=== PATIENT | female | born 1940 | race American Indian/Alaskan Native ===

== ENCOUNTER 2018-01-25 11:09 | Observation (INO) | payer MEDICARE, OTHER ==
[2018-01-25 11:47] LABS: VENOUS BLOOD GAS BASE EXCESS 1.5 mmol/L (0.0-2.0); VENOUS BLOOD GAS PCO2 39 mmHg (40-60); VENOUS BLOOD GAS PO2 20 mm/Hg (30-55); VENOUS BLOOD PH 7.43 (7.32-7.43)
[2018-01-25 11:50] LABS: BASO # 0.1 K/uL (0.0-0.2); EOS % 0.1 % (0.0-4.0); HEMOGLOBIN 11.2 g/dL (11.0-16.0); LYMPH # 0.8 K/uL (1.0-4.3); LYMPH % 12.6 % (20.0-40.0); MEAN CORPUSCULAR HEMOGLOBIN 26.5 pg (27.0-31.0); MEAN CORPUSCULAR HGB CONC 33.5 g/dL (33.0-37.0); MEAN PLATELET VOLUME 10.4 fL (7.2-11.7); MONO # 0.8 K/uL (0.0-0.8); MONO % 12.6 % (0.0-10.0); NEUT # 4.7 K/uL (1.8-7.0); NEUT % 73.7 % (50.0-75.0); NRBC % 0.1 % (0.0-2.0); RBC 4.24 Mil/uL (3.80-5.20); RED CELL DISTRIBUTION WIDTH 14.4 % (11.5-14.5); WHITE BLOOD COUNT 6.3 K/uL (4.8-10.8)
--- NOTE | 2018-01-25 11:58 | C.PDOC ---
History Of Present Illness 77 y/o female, with PMHx of HTN, and diabetes, presents to ED c/o dizziness associated with chills, and generalized weakness for the last 2 days. Notes dizziness is worse when standing up. Pt also complains of lesions to her arm that she noticed 4 days ago. She admits to shortness of breath occasionally. Otherwise, denies headache, chest pain, palpitation, cough, or any other associated symptoms at this time. Time Seen by Provider: 01/25/18 11:34 Chief Complaint (Nursing): Dizziness/Lightheaded History Per: Patient History/Exam Limitations: no limitations Onset/Duration Of Symptoms: Days Current Symptoms Are (Timing): Still Present Activity At Onset Of Symptoms: Standing Recent travel outside of the [place]: No Additional History Per: Patient Past Medical History Reviewed: Historical Data, Nursing Documentation, Vital Signs Vital Signs: Last Vital Signs Temp 100.3 F H 01/25/18 11:18 Pulse 70 01/25/18 11:18 Resp 19 01/25/18 11:18 BP 147/70 01/25/18 11:18 Pulse Ox 98 01/25/18 11:18 - Medical History PMH: HTN Family History: States: Unknown Family Hx - Social History Hx Alcohol Use: No Hx Substance Use: No - Immunization History Hx Tetanus Toxoid Vaccination: No Hx Influenza Vaccination: No Hx Pneumococcal Vaccination: Yes Review Of Systems Except As Marked, All Systems Reviewed And Found Negative. Constitutional: Positive for: Chills, Weakness Cardiovascular: Negative for: Chest Pain Respiratory: Positive for: Shortness of Breath Musculoskeletal: Negative for: Neck Pain Skin: Positive for: Lesions Neurological: Positive for: Dizziness. Negative for: Weakness, Numbness, Headache Physical Exam - Physical Exam Appears: Non-toxic, No Acute Distress Skin: Warm, Dry, Other (small, tender, purulent, and erythematous lesion to right cubital fossa; another small and tender lesion to left forearm) Head: Atraumatic, Normacephalic Eye(s): bilateral: Normal Inspection Oral Mucosa: Moist Neck: Normal ROM, Supple Cardiovascular: Rhythm Regular, No Murmur Respiratory: Normal Breath Sounds, No Rales, No Rhonchi, No Wheezing Gastrointestinal/Abdominal: Soft, No Tenderness Extremity: Normal ROM Neurological/Psych: Oriented x3, Normal Speech, No Other (no focal deficits) ED Course And Treatment - Laboratory Results Result Diagrams: 10/04/18 11:44 01/25/18 11:44 ECG: Interpreted By Me, Viewed By Me ECG Rhythm: Sinus Rhythm ECG Interpretation: No Acute Changes Interpretation Of ECG: Q wave in inferior leads. No acute ST/T wave changes. Rate From EC (bpm) O2 Sat by Pulse Oximetry: 98 (RA) Pulse Ox Interpretation: Normal Medical Decision Making Medical Decision Making: Plan: Blood work Urinalysis EKG CXR Patient initially with low grade temp in the ED 100.3, no elevated white count, no UTI, no pneumonia, lactate mildly elevated. patient developed fever in the ED, plan to hospitalize. spoke with surveillance monitor physician , Dr. Thorpe for patients PMD's office. Recommended using surveillance monitor medicine. Discussed with Dr. Coppola and medical director/head team physician. Disposition Discussed With Dr.: Herrera Coppola Jr. Counseled Patient/Family Regarding: Studies Performed, Diagnosis, Need For Followup - Disposition Disposition: HOSPITALIZED Disposition Time: 14:37 Condition: GUARDED Forms: [facility] (Moroccan) - POA Present On Arrival: None - Clinical Impression Clinical Impression: Fever, Dizziness - Scribe Statement The provider has reviewed the documentation as recorded by the Scribe KP All medical record entries made by the Scribe were at my direction and personally dictated by me. I have reviewed the chart and agree that the record accurately reflects my personal performance of the history, physical exam, medical decision making, and the department course for this patient. I have also personally directed, reviewed, and agree with the discharge instructions and disposition. Decision To Admit - Pt Status Changed To: Hospital Disposition Of: Observation - . Bed Request Type: Regular Admitting Physician: Hererra Coppola Jr. Patient Diagnosis: Fever, Dizziness
[2018-01-25 12:01] LABS: ALB/GLOB RATIO 1.3 (1.0-2.1); ALBUMIN 4.2 g/dL (3.5-5.0); CALCIUM 9.2 mg/dl (8.6-10.4)
--- NOTE | 2018-01-25 12:41 | RAD ---
Date of service: 01/25/2018 HISTORY: Sepsis Patient COMPARISON: No prior. FINDINGS: LUNGS: No active pulmonary disease. PLEURA: No significant pleural effusion identified, no pneumothorax apparent. CARDIOVASCULAR: No radiographic findings to suggest acute or significant cardiovascular disease. OSSEOUS STRUCTURES: No significant abnormalities. VISUALIZED UPPER ABDOMEN: Normal. OTHER FINDINGS: None. IMPRESSION: No active disease.
[2018-01-25 13:21] LABS: SQUAMOUS EPITHIAL 6 /hpf (0-5); URINE BACTERIA RARE (<OCC); URINE BILIRUBIN NEGATIVE (NEGATIVE); URINE BLOOD 1+ (NEGATIVE); URINE CLARITY Hazy (Clear); URINE COLOR Amber (YELLOW); URINE GLUCOSE (UA) NORMAL (Normal); URINE LEUKOCYTE ESTERASE 3+ Leu/uL (Negative); URINE PROTEIN 2+ mg/dL (NEGATIVE); URINE UROBILINOGEN NORMAL mg/dL (0.2-1.0)
[2018-01-25] MEDS ORDERED: Sodium Chloride 0.9% 1,000 ML IV ONE (13:23)
[2018-01-25] MEDS ORDERED: Sodium Chloride 0.9% 1,000 ML ONE (13:55)
--- NOTE | 2018-01-25 14:41 | CP.PCM.HP ---
History of Present Illness - History of Present Illness History of Present Illness: POA: : Hunter Smith #[phone] HPI: 77 year old female with past medical history of HTN and diabetes type II presents to the ER for shortness of breath and lightheadedness for the past 3 days. Patient states both symptoms started randomly. She normally can walk on her own without any assisted devices. Lately she feels like she has to hold on to things to keep her balance so she does not fall. She states she can usually walk 2-3 blocks without any difficulty breathing, however lately she is having shortness of breath walking from her bed to the bathroom. She states she sleeps with one pillow. She also reports drinking a lot of tomato juice for the past 2 weeks even though she is allergic. When prompted why she stated, "I wanted a cold drink." She has also been around a cat last week while she was doing her hair and she is normally also allergic with rashes when exposed to cats. Overnight she states she felt feverish with chills. Patient also recently traveled to [place] by car and returned 12/29/17. She denies chest pain, palpitations, cat bite or scratch, dysuria, hematuria, diarrhea, constipation, nausea, vomiting or sick contacts. PMD: Dr. Lozada Past Medical History: Diabetes Type II; HTN Past Surgical History: denies Medications: Losartan/HCTZ 100/25mg dialy; Glipizide ER 5mg before breakfast; Glipizide ER 10mg before lunch and dinner; Amlodipine 10mg daily; Metoprolol tartrate 100mg bid; Repaglinidine 2mg 2 tablets before breakfast; Metformin 1000mg bid; Clonidine 0.2mg HS; Pioglitazone 15mg daily; Aspirin 81mg daily; Multivitamin daily Allergies: Tomato- rash; Cats - rash Social History: denies alcohol, smoking or illicit drug use. Lives with . Present on Admission - Present on Admission Any Indicators Present on Admission: No Review of Systems - Constitutional Constitutional: Chills, Fever. absent: Headache - EENT Eyes: absent: Blurred Vision - Cardiovascular Cardiovascular: Dyspnea, Dyspnea on Exertion, Lightheadedness. absent: Chest Pain, Chest Pain at Rest, Chest Pain with Activity, Edema, Palpitations - Respiratory Respiratory: Dyspnea on Exertion. absent: Cough, Wheezing - Gastrointestinal Gastrointestinal: absent: Constipation, Diarrhea, Nausea, Vomiting - Genitourinary Genitourinary: absent: Dysuria, Hematuria - Musculoskeletal Musculoskeletal: absent: Numbness, Tingling - Endocrine Endocrine: absent: Fatigue, Palpitations Past Patient History - Past Social History Smoking Status: Never Smoked - CARDIAC Hx Hypertension: Yes - ENDOCRINE/METABOLIC Hx Diabetes Mellitus Type 2: Yes - PSYCHIATRIC Hx Substance Use: No - SURGICAL HISTORY Hx Surgeries: No - ANESTHESIA Hx Anesthesia: No Meds Allergies/Adverse Reactions: Allergies Allergy/AdvReac Type Severity Reaction Status Date / Time clindamycin Allergy ITCHING Verified 01/25/18 16:17 tomato Allergy RASH Verified 01/25/18 16:04 Physical Exam - Constitutional Appears: Well, Non-toxic, No Acute Distress - Head Exam Head Exam: ATRAUMATIC, NORMAL INSPECTION - Eye Exam Eye Exam: EOMI, Normal appearance, PERRL Pupil Exam: NORMAL ACCOMODATION - ENT Exam ENT Exam: Mucous Membranes Moist - Neck Exam Neck exam: Negative for: Lymphadenopathy - Respiratory Exam Respiratory Exam: Clear to Auscultation Bilateral, NORMAL BREATHING PATTERN. absent: Rales, Rhonchi, Wheezes, Stridor - Cardiovascular Exam Cardiovascular Exam: REGULAR RHYTHM, RRR, +S1, +S2. absent: JVD - GI/Abdominal Exam GI & Abdominal Exam: Normal Bowel Sounds, Soft. absent: Distended, Firm, Tenderness - Extremities Exam Extremities exam: Positive for: normal capillary refill, normal inspection, pedal pulses present. Negative for: joint swelling, pedal edema, tenderness - Neurological Exam Neurological exam: Alert, CN II-XII Intact, Oriented x3 - Expanded Neurological Exam Expanded Patient oriented to: person, place, time Cranial nerves: EOM's Intact: Normal Sensory exam: Lower Extremity Light Touch: Normal, Upper Extremity Light Touch: Normal Neuro motor strength exam: Left Upper Extremity: 5, Right Upper Extremity: 5, L eft Lower Extremity: 5, Right Lower Extremity: 5 Coma Scale Eye Opening: SPONTANEOUS Coma Scale Motor Response: OBEYS COMMANDS - Psychiatric Exam Psychiatric exam: Normal Affect, Normal Mood - Skin Skin Exam: Rash (small, pruritic and erythematous lesion to right cubital fossa; small and pruritic lesion to left forearm), Urticaria (right forearm; posterior trunk) Results - Vital Signs Recent Vital Signs: Last Vital Signs Temp 101.4 F H 01/25/18 13:36 Pulse 66 01/25/18 13:36 Resp 20 01/25/18 13:36 BP 125/63 01/25/18 13:36 Pulse Ox 98 01/25/18 14:40 - Labs Result Diagrams: 01/25/18 11:44 01/25/18 11:44 Labs: Laboratory Results - last 24 hr 01/25/18 01/25/18 01/25/18 11:41 11:44 11:44 WBC 6.3 RBC 4.24 Hgb 11.2 Hct 33.5 L MCV 79.0 L MCH 26.5 L MCHC 33.5 RDW 14.4 Plt Count 213 MPV 10.4 Neut % (Auto) 73.7 Lymph % (Auto) 12.6 L [place] % (Auto) 12.6 H Eos % (Auto) 0.1 Baso % (Auto) 1.0 Neut # (Auto) 4.7 Lymph # (Auto) 0.8 L [place] # (Auto) 0.8 Eos # (Auto) 0.0 Baso # (Auto) 0.1 pO2 20 L VBG pH 7.43 VBG pCO2 39 L VBG HCO3 24.4 VBG Total CO2 27.1 VBG O2 Sat (Calc) 35.5 L VBG Base Excess 1.5 VBG Potassium 3.9 Sodium 136.0 136 Chloride 104.0 101 Glucose 138 H Lactate 2.0 Potassium 4.1 Carbon Dioxide 23 Anion Gap 16 BUN 21 H Creatinine 1.2 Est GFR ( Amer) 53 Est GFR (Non-Af Amer) 44 Random Glucose 134 H Calcium 9.2 Total Bilirubin 0.5 AST 57 H ALT 57 H Alkaline Phosphatase 87 Total Protein 7.3 Albumin 4.2 Globulin 3.1 Albumin/Globulin Ratio 1.3 Venous Blood Potassium 3.9 Urine Color Urine Clarity Urine pH Ur Specific [place] Urine Protein Urine Glucose (UA) Urine Ketones Urine Blood Urine Nitrate Urine Bilirubin Urine Urobilinogen Ur Leukocyte Esterase Urine WBC (Auto) Urine RBC (Auto) Ur Squamous Epith Cells Urine Bacteria Hyaline Casts 01/25/18 13:12 WBC RBC Hgb Hct MCV MCH MCHC RDW Plt Count MPV Neut % (Auto) Lymph % (Auto) [place] % (Auto) Eos % (Auto) Baso % (Auto) Neut # (Auto) Lymph # (Auto) [place] # (Auto) Eos # (Auto) Baso # (Auto) pO2 VBG pH VBG pCO2 VBG HCO3 VBG Total CO2 VBG O2 Sat (Calc) VBG Base Excess VBG Potassium Sodium Chloride Glucose Lactate Potassium Carbon Dioxide Anion Gap BUN Creatinine Est GFR ( Amer) Est GFR (Non-Af Amer) Random Glucose Calcium Total Bilirubin AST ALT Alkaline Phosphatase Total Protein Albumin Globulin Albumin/Globulin Ratio Venous Blood Potassium Urine Color Tammy Urine Clarity Hazy Urine pH 5.0 Ur Specific [place] 1.020 Urine Protein 2+ H Urine Glucose (UA) Normal Urine Ketones Negative Urine Blood 1+ H Urine Nitrate Negative Urine Bilirubin Negative Urine Urobilinogen Normal Ur Leukocyte Esterase 3+ H Urine WBC (Auto) 26 H Urine RBC (Auto) 6 H Ur Squamous Epith Cells 6 H Urine Bacteria Rare Hyaline Casts 11-20 H Assessment & Plan - Assessment and Plan (Free Text) Assessment: Shortness of Breath - secondary to allergic reaction vs. infection - Patient states she has been drinking tomato juice daily for the past 2 we eks - Febrile; WBS- WNL - UA: contaminated; f/u repeat UA - f/u blood culture and urine culture - VBG: pH 7.42; CO2 36; HCO3 23.5 - Chest Xray: No active disease - EKG: NSR - Medications * Patient was given a one dose of Clindamycin in the ER - patient later developed a further rash on her left arm * Tylenol prn for fever * Solumedrol 125mg one dose * Pepcid 20mg bid * Benadryl 25mg daily Fever - possibly secondary to Erythematous lesion right cubital fossa - UA: contaminated; f/u repeat UA - f/u blood culture and urine culture - Medications * Patient was given a one dose of Clindamycin in the ER - patient later developed a further rash on her left arm * Tylenol prn for fever * Keflex 500mg q6h History of HTN - Restart Home medications: * Amlodipine 10mg po daily * Clonidine 0.2mg po HS * Metoprolol Tartrate 100mg po bid * Losartan 100mg po daily - ECHO (09/27/17): borderline concentric left ventricular hypertrophy; left ventricle systolic function is normal; EF 65-70% - Myocardial Perfusion Study (09/27/17): Left ventricle systolic function is normal; EF 66-67% at rest; no regional wall motion abnormalities noted; no ischemia History of Diabetes - Restart home medications: * Glipizide SR 5mg po before breakfast * Glipizide SR 10mg po before lunch and dinner * Metformin 1000mg po bid * Pioglitazone 15mg po daily * Prandin 2mg two tablets before breakfast * Aspirin 81mg dialy Prophylaxis - DVT risk 2: - Heparin SC q8h - SCDs - Physical Therapy eval and treat Case discussed with Dr. Anat Oropeza PGY-2
[2018-01-25 14:48] LABS: VENOUS BLOOD GAS BASE EXCESS -0.7 mmol/L (0.0-2.0); VENOUS BLOOD GAS PCO2 36 mmHg (40-60); VENOUS BLOOD GAS PO2 32 mm/Hg (30-55); VENOUS BLOOD PH 7.42 (7.32-7.43)
[2018-01-25] MEDS ORDERED: Dextrose 50% SYRINGE Inj (50 ml) IV PRN (16:07)
[2018-01-25] MEDS ORDERED: Glucagon Recombinant 1 mg Inj IM PRN (16:07)
[2018-01-25] MEDS: GlipiZIDE 10 mg SR Tab PO SCH (17:17)
[2018-01-25] MEDS: Saccharomyces Boulardi 250 mg Cap PO SCH (22:03)
[2018-01-25 22:27] VITALS: RESP 20
[2018-01-25 23:52] VITALS: O2SAT 96
[2018-01-26] MEDS ORDERED: GlipiZIDE 5 mg SR Tab PO SCH (07:30)
[2018-01-26] MEDS: GlipiZIDE 10 mg SR Tab PO SCH ×2 (08:00→16:30)
[2018-01-26] MEDS: (Novolin R) Insulin Human Regular 100 units/ml vial SC SCH ×3 (08:00→16:30)
[2018-01-26 08:15] LABS: BASO % 0.3 % (0.0-2.0); HEMOGLOBIN 10.9 g/dL (11.0-16.0); LYMPH # 0.9 K/uL (1.0-4.3); LYMPH % 15.2 % (20.0-40.0); MEAN CELL VOLUME 78.8 fL (81.0-99.0); MEAN CORPUSCULAR HEMOGLOBIN 27.1 pg (27.0-31.0); MEAN CORPUSCULAR HGB CONC 34.4 g/dL (33.0-37.0); MEAN PLATELET VOLUME 10.7 fL (7.2-11.7); MONO # 0.5 K/uL (0.0-0.8); MONO % 8.9 % (0.0-10.0); NEUT # 4.5 K/uL (1.8-7.0); NEUT % 75.6 % (50.0-75.0); RBC 4.02 Mil/uL (3.80-5.20)
[2018-01-26 08:31] LABS: ALB/GLOB RATIO 1.3 (1.0-2.1); ALBUMIN 3.7 g/dL (3.5-5.0); CALCIUM 8.8 mg/dl (8.6-10.4)
[2018-01-26] MEDS: Saccharomyces Boulardi 250 mg Cap PO SCH ×2 (09:16→18:03)
[2018-01-26] MEDS ORDERED: Multiple Vitamins Tab PO SCH (10:00)
[2018-01-26] MEDS ORDERED: Magnesium Sulfate 1 gm in D5W 1 GM/100 ML BAG IVPB ONE (10:48)
[2018-01-26] MEDS ORDERED: Magnesium Oxide 400 mg Tab UD PO ONE ×2 (10:51→18:00)
--- NOTE | 2018-01-26 14:33 | CP.PCM.PN ---
Objective - Vital Signs/Intake and Output Vital Signs (last 24 hours): Temp Pulse Resp BP Pulse Ox 97.7 F 69 20 169/89 H 96 01/26/18 07:40 01/26/18 07:40 01/26/18 07:40 01/26/18 07:40 01/26/18 12:24 Intake and Output: 01/26/18 01/26/18 06:59 18:59 Intake Total 200 Balance 200 - Medications Medications: Current Medications Acetaminophen (Tylenol 325mg Tab) 650 mg PO Q6 PRN PRN Reason: Fever >100.4 F Amlodipine Besylate (Norvasc) 10 mg PO DAILY [facility] Last Admin: 01/26/18 09:16 Dose: 10 mg Aspirin (Ecotrin) 81 mg PO DAILY [facility] Last Admin: 01/26/18 09:16 Dose: 81 mg Cephalexin Monohydrate (Keflex) 500 mg PO Q6H [facility]; Protocol Last Admin: 01/26/18 14:06 Dose: 500 mg Clonidine HCl (Catapres) 0.2 mg PO HS [facility] Last Admin: 01/25/18 22:03 Dose: 0.2 mg Dextrose (Dextrose 50% Inj) 0 ml IV STAT PRN; Protocol PRN Reason: Hypoglycemia Protocol Dextrose (Glutose 15) 0 gm PO ONCE PRN; Protocol PRN Reason: Hypoglycemia Protocol Diphenhydramine HCl (Benadryl) 25 mg PO DAILY [facility] Last Admin: 01/26/18 09:20 Dose: Not Given Famotidine (Pepcid) 20 mg PO BID [facility] Last Admin: 01/26/18 09:16 Dose: 20 mg Glipizide (Glucotrol Xl) 5 mg PO ACB [facility] Last Admin: 01/26/18 08:00 Dose: 5 mg Glipizide (Glucotrol Xl) 10 mg PO BIDAC [facility] Last Admin: 01/26/18 08:00 Dose: 10 mg Glucagon (Glucagen Diagnostic Kit) 0 mg IM STAT PRN; Protocol PRN Reason: Hypoglycemia Protocol Heparin Sodium (Porcine) (Heparin) 5,000 units SC Q8 [facility] Last Admin: 01/26/18 14:06 Dose: 5,000 units Dextrose (Dextrose 5% In Water 1000 Ml) 1,000 mls @ 0 mls/hr IV .Q0M PRN; Protocol PRN Reason: Hypoglycemia Protocol Influenza Virus Vaccine (Fluzone Quad [id number]) 60 mcg IM .ONCE ONE Stop: 01/27/18 10:01 Insulin Human Regular (Novolin R) 0 unit SC [facility]; Protocol Last Admin: 01/26/18 12:30 Dose: 5 unit Losartan Potassium (Cozaar) 100 mg PO DAILY [facility] Last Admin: 01/26/18 09:16 Dose: 100 mg Magnesium Oxide (Mag-Ox) 400 mg PO ONCE ONE Stop: 01/26/18 18:01 Metformin HCl (Glucophage) 1,000 mg PO BID [facility] Last Admin: 01/26/18 09:16 Dose: 1,000 mg Metoprolol Tartrate (Lopressor) 100 mg PO BID [facility] Last Admin: 01/26/18 09:16 Dose: 100 mg Multivitamins (Hexavitamin) 1 tab PO DAILY [facility] Last Admin: 01/26/18 09:16 Dose: 1 tab Pioglitazone HCl (Actos) 15 mg PO DAILY [facility] Last Admin: 01/26/18 09:17 Dose: 15 mg Repaglinide (Prandin) 2 mg PO ACB [facility] Last Admin: 01/26/18 08:00 Dose: 2 mg Saccharomyces Boulardii (Florastor) 250 mg PO BID [facility] Last Admin: 01/26/18 09:16 Dose: 250 mg - Labs Labs: 01/26/18 07:40 01/26/18 07:40
[2018-01-26 18:07] VITALS: BP 161/71; PULSE 73; TEMP 98.5
--- NOTE | 2018-01-26 18:12 | CP.PCM.DIS ---
Provider - Provider Date of Admission: 01/25/18 14:38 Attending physician: Herrera Coppola Jr, MD Time Spent in preparation of Discharge (in minutes): 35 Diagnosis - Discharge Diagnosis (1) Insect bite Status: Acute (2) Diabetes Status: Chronic (3) Dizziness Status: Resolved (4) Fever Status: Resolved (5) Allergic reaction caused by a drug Status: Resolved Hospital Course - Lab Results Lab Results: Micro Results 01/25/18 12:07 Blood Blood Culture - Preliminary NO GROWTH AFTER 24 HOURS 01/25/18 12:03 Blood Blood Culture - Preliminary NO GROWTH AFTER 24 HOURS Most Recent Lab Values WBC 6.0 K/uL (4.8-10.8) 01/26/18 07:40 RBC 4.02 Mil/uL (3.80-5.20) 01/26/18 07:40 Hgb 10.9 g/dL (11.0-16.0) L 01/26/18 07:40 Hct 31.7 % (34.0-47.0) L 01/26/18 07:40 MCV 78.8 fL (81.0-99.0) L 01/26/18 07:40 MCH 27.1 pg (27.0-31.0) 01/26/18 07:40 MCHC 34.4 g/dL (33.0-37.0) 01/26/18 07:40 RDW 14.0 % (11.5-14.5) 01/26/18 07:40 Plt Count 228 K/uL (130-400) 01/26/18 07:40 MPV 10.7 fL (7.2-11.7) 01/26/18 07:40 Neut % (Auto) 75.6 % (50.0-75.0) H 01/26/18 07:40 Lymph % (Auto) 15.2 % (20.0-40.0) L 01/26/18 07:40 [place] % (Auto) 8.9 % (0.0-10.0) 01/26/18 07:40 Eos % (Auto) 0.0 % (0.0-4.0) 01/26/18 07:40 Baso % (Auto) 0.3 % (0.0-2.0) 01/26/18 07:40 Neut # (Auto) 4.5 K/uL (1.8-7.0) 01/26/18 07:40 Lymph # (Auto) 0.9 K/uL (1.0-4.3) L 01/26/18 07:40 [place] # (Auto) 0.5 K/uL (0.0-0.8) 01/26/18 07:40 Eos # (Auto) 0.0 K/uL (0.0-0.7) 01/26/18 07:40 Baso # (Auto) 0.0 K/uL (0.0-0.2) 01/26/18 07:40 pO2 32 mm/Hg (30-55) 01/25/18 14:44 VBG pH 7.42 (7.32-7.43) 01/25/18 14:44 VBG pCO2 36 mmHg (40-60) L 01/25/18 14:44 VBG HCO3 23.5 mmol/L 01/25/18 14:44 VBG Total CO2 24.5 mmol/L (22-28) 01/25/18 14:44 VBG O2 Sat (Calc) 66.9 % (40-65) H 01/25/18 14:44 VBG Base Excess -0.7 mmol/L (0.0-2.0) L 01/25/18 14:44 VBG Potassium 3.7 mmol/L (3.6-5.2) 01/25/18 14:44 Sodium 137.0 mmol/l (132-148) 01/25/18 14:44 Chloride 107.0 mmol/L (98-107) 01/25/18 14:44 Glucose 130 mg/dl (65-105) H 01/25/18 14:44 Lactate 1.1 mmol/L (0.7-2.1) 01/25/18 14:44 Sodium 137 mmol/L (132-148) 01/26/18 07:40 Potassium 4.3 mmol/L (3.6-5.2) 01/26/18 07:40 Chloride 101 mmol/L (98-107) 01/26/18 07:40 Carbon Dioxide 21 mmol/L (22-30) L 01/26/18 07:40 Anion Gap 19 (10-20) 01/26/18 07:40 BUN 27 mg/dL (7-17) H 01/26/18 07:40 Creatinine 1.1 mg/dL (0.7-1.2) 01/26/18 07:40 Est GFR ( Amer) 58 01/26/18 07:40 Est GFR (Non-Af Amer) 48 01/26/18 07:40 POC Glucose (mg/dL) 239 mg/dL (65-110) H 01/26/18 16:25 Random Glucose 371 mg/dL (65-105) H 01/26/18 07:40 Calcium 8.8 mg/dl (8.6-10.4) 01/26/18 07:40 Phosphorus 3.8 mg/dL (2.5-4.5) 01/26/18 07:40 Magnesium 1.5 mg/dL (1.6-2.3) L 01/26/18 07:40 Total Bilirubin 0.5 mg/dL (0.2-1.3) 01/26/18 07:40 AST 36 U/L (14-36) D 01/26/18 07:40 ALT 45 U/L (9-52) 01/26/18 07:40 Alkaline Phosphatase 84 U/L (38-126) 01/26/18 07:40 Total Protein 6.6 g/dL (6.3-8.3) 01/26/18 07:40 Albumin 3.7 g/dL (3.5-5.0) 01/26/18 07:40 Globulin 2.9 gm/dL (2.2-3.9) 01/26/18 07:40 Albumin/Globulin Ratio 1.3 (1.0-2.1) 01/26/18 07:40 Venous Blood Potassium 3.7 mmol/L (3.6-5.2) 01/25/18 14:44 Urine Color Tammy (YELLOW) 01/25/18 13:12 Urine Clarity Hazy (Clear) 01/25/18 13:12 Urine pH 5.0 (5.0-8.0) 01/25/18 13:12 Ur Specific [place] 1.020 (1.003-1.030) 01/25/18 13:12 Urine Protein 2+ mg/dL (NEGATIVE) H 01/25/18 13:12 Urine Glucose (UA) Normal mg/dL (Normal) 01/25/18 13:12 Urine Ketones Negative mg/dL (NEGATIVE) 01/25/18 13:12 Urine Blood 1+ (NEGATIVE) H 01/25/18 13:12 Urine Nitrate Negative (NEGATIVE) 01/25/18 13:12 Urine Bilirubin Negative (NEGATIVE) 01/25/18 13:12 Urine Urobilinogen Normal mg/dL (0.2-1.0) 01/25/18 13:12 Ur Leukocyte Esterase 3+ Geo/uL (Negative) H 01/25/18 13:12 Urine WBC (Auto) 26 /hpf (0-5) H 01/25/18 13:12 Urine RBC (Auto) 6 /hpf (0-3) H 01/25/18 13:12 Ur Squamous Epith Cells 6 /hpf (0-5) H 01/25/18 13:12 Urine Bacteria Rare (<OCC) 01/25/18 13:12 Hyaline Casts 11-20 /lpf (0-2) H 01/25/18 13:12 - Hospital Course Hospital Course: On admission: HPI: 77 year old female with past medical history of HTN and diabetes type II presents to the ER for shortness of breath and lightheadedness for the past 3 days. Patient states both symptoms started randomly. She normally can walk on her own without any assisted devices. Lately she feels like she has to hold on to things to keep her balance so she does not fall. She states she can usually walk 2-3 blocks without any difficulty breathing, however lately she is having shortness of breath walking from her bed to the bathroom. She states she sleeps with one pillow. She also reports drinking a lot of tomato juice for the past 2 weeks even though she is allergic. When prompted why she stated, "I wanted a cold drink." She has also been around a cat last week while she was doing her hair and she is normally also allergic with rashes when exposed to cats. Overnight she states she felt feverish with chills. Patient also recently t raveled to [place] by car and returned 12/29/17. She denies chest pain, palpitations, cat bite or scratch, dysuria, hematuria, diarrhea, constipation, nausea, vomiting or sick contacts. Hospital course: Fever (tmax 101.4) managed with Tylenol PRN. CXR shows no active disease. EKG showed NSR. Blood culture urine culture sent. UA, contaminated, not started on abx for UTI. Pt was given one dose of Clindamycin in the ER, but developed rash on left forearm. Clindamycin stopped, pt given solumedrol 125 mg IVP, pepcid, benadryl. Started on Keflex 500 mg PO q6h for skin findings. 01/26, pt has not had leukocytosis, and fever has resolved. Blood culture x2 prelim shows no growth for 24 hours. Urine culture shows multiple species, in light of contaminated urine sample, and no urinary symptoms likely not cause of fever and not UTI. Will be discharged home on oral doxycycline for MRSA coverage, and mupiricin cream. Hx of HTN: Home meds were continued during hospital stay. History of Diabetes: Home meds were continued during hospital stay. This is a summary of the hospital course, please see chart for full details Discharge Exam - Head Exam Head Exam: ATRAUMATIC, NORMAL INSPECTION - Eye Exam Eye Exam: EOMI, Normal appearance - ENT Exam ENT Exam: Mucous Membranes Moist - Neck Exam Neck exam: Normal Inspection - Respiratory Exam Respiratory Exam: Clear to PA & Lateral, NORMAL BREATHING PATTERN. absent: Rales, Rhonchi, Wheezes, Respiratory Distress - Cardiovascular Exam Cardiovascular Exam: REGULAR RHYTHM, +S1, +S2 - GI/Abdominal Exam GI & Abdominal Exam: Normal Bowel Sounds. absent: Firm, Guarding, Rebound, Rigid, Soft, Tenderness (no suprapubic tenderness) - Extremities Exam Extremities exam: normal inspection (no edema, no calf tenderness) - Back Exam Back exam: NORMAL INSPECTION - Neurological Exam Neurological exam: Alert, Oriented x3 - Psychiatric Exam Psychiatric exam: Normal Affect, Normal Mood - Skin Skin Exam: Dry, Normal Color, Warm Additional comments: (+) 3mm x 3mm circular crater with central necrotic/eschar to the right antecubital fossa, with surrounding erythema, (-) tenderness, (-) bleeding, (-) streaking erythematous lines, (-) swelling Discharge Plan - Discharge Medications Prescriptions: Doxycycline Hyclate 100 mg PO BID 5 Days #10 capsule Mupirocin 2% Cream [Bactroban Cream] 1 applic TOP TID #1 tube - Follow Up Plan Condition: GUARDED Disposition: HOME/ ROUTINE Instructions: Dizziness, Nonvertigo, (DC), Fever, Adult (DC), Doxycycline Additional Instructions: Patient is medically stable and safe for discharge home. Patient should continue taking her home medications as originally prescribed. In addition to her regular home medications, she should start Mupricin cream application to affected area three times a day for 10 days, and Doxycycline 100 mg PO once in the morning and once in the evening for 5 days. Follow up with Dr. Lozada, or Dr. Coppola, in 1 week. If symptoms worsen, or if you develop fever that is unresponsive to Tylenol, please return to the nearest Emergency Department for evaluation. Instructions explained to the patient, who understands and agrees with discharge plan. Referrals: Herrera Coppola Jr., MD [Medical Doctor] -
[2018-01-27] MEDS ORDERED: Influenza Vaccine 60 MCG/0.5 ML SYR (3 yr & up) IM ONE (10:00)
== END 2018-01-26 19:02 | disposition home or self-care (01) ==
LOC: C.ER 11:09 → C.9E 14:38 → C.3T 18:26
PROVIDERS: ADMIT Internal Medicine; ATTEND Internal Medicine
DX: E11.9 Type 2 diabetes mellitus without complications (principal); R50.9 Fever, unspecified; R42 Dizziness and giddiness; R21 Rash and other nonspecific skin eruption; W57.XXXA Bitten or stung by nonvenomous insect and other nonvenomous arthropods, initial encounter; T36.8X5A Adverse effect of other systemic antibiotics, initial encounter; I10 Essential (primary) hypertension; K59.00 Constipation, unspecified
CPT/HCPCS: 36415; 71045; 80053; 81001; 82803; 82948; 83735; 84100; 85025; 87040; 87086; 96361; 96365; 96372; 96375; 97116; 97162; 97165; 97530; 99285; G0378; G8978; G8979; G8987; G8988; G8989; J1644; J2930; J7030